=== PATIENT | female | born 1945 | race Asian ===

== ENCOUNTER 2021-02-08 15:22 | Emergency (ER) | payer MEDICARE, OTHER ==
[~2021-02-08] VITALS: Ht 152.4 cm; Wt 63.6 kg
[2021-02-08] MEDS ORDERED: CarBAMazepine 200 MG TABLET PO ONE (17:15)
[2021-02-08 17:23] LABS: BASOPHILS % (AUTO) 0.4 % (0.0-2.0); EOSINOPHILS % (AUTO) 0.9 % (1.0-6.0); HEMATOCRIT 38.5 % (36-46); HEMOGLOBIN 12.4 g/dL (12.0-16.0); LYMPHOCYTES # (AUTO) 2.1 K/uL (1.0-4.8); LYMPHOCYTES % (AUTO) 31.8 % (22.0-44.0); MEAN CORPUSCULAR VOLUME 91 fL (80-100); MONOCYTES # (AUTO) 0.4 K/uL (0.1-1.0); MONOCYTES % (AUTO) 5.6 % (2.0-9.0); NEUTROPHILS % (AUTO) 61.3 % (40.0-70.0); PLATELET COUNT (AUTO) 253 K/uL (150-450); RED BLOOD CELL COUNT(AUTO) 4.26 MIL/uL (4.00-5.20); RED CELL DISTRIBUTION WIDTH 13.7 % (11.5-14.5)
[2021-02-08 17:40] LABS: CALCIUM, TOTAL 8.8 mg/dL (8.8-10.5); CREATININE 1.16 mg/dL (0.60-1.30); POTASSIUM 3.9 mmol/L (3.5-5.1)
[2021-02-08 17:45] LABS: ALBUMIN 3.9 g/dL (3.4-5.0); BILIRUBIN,TOTAL 0.3 mg/dL (0.1-1.0); TOTAL PROTEIN, SERUM 7.6 g/dL (6.4-8.2)
[2021-02-08 18:13] VITALS: BP 118/67
== END 2021-02-08 18:24 | disposition home or self-care (01) ==
LOC: EMS 15:26
DX: K08.89 Other specified disorders of teeth and supporting structures (principal); G50.0 Trigeminal neuralgia; E78.00 Pure hypercholesterolemia, unspecified; I10 Essential (primary) hypertension
CPT/HCPCS: 80053; 85025; 99283

== ENCOUNTER 2022-05-11 16:34 | Emergency (ER) | payer OTHER ==
[~2022-05-11] VITALS: Ht 157.5 cm; Wt 70.5 kg
[2022-05-11 16:39] VITALS: BP 127/63
[2022-05-11] MEDS ORDERED: ASPI81TA87 PO ×2 (16:48→17:18)
[2022-05-11] MEDS ORDERED: AMLO2.5T96 PO (16:48)
[2022-05-11] MEDS ORDERED: [UNRECOGNIZED DRUG - CODE] PO ×2 (16:48→17:18)
[2022-05-11] MEDS ORDERED: GABA-1216 PO ×2 (16:48→17:18)
[2022-05-11] MEDS ORDERED: SIMV-259 PO ×2 (16:48→17:18)
[2022-05-11] MEDS ORDERED: CHOL25TA4 PO (17:17)
[2022-05-11] MEDS ORDERED: AMLO10TA55 PO (17:17)
== END 2022-05-11 19:09 | disposition left against medical advice (07) ==
LOC: EMS 16:34
DX: Z53.21 Procedure and treatment not carried out due to patient leaving prior to being seen by health care provider (principal)